=== PATIENT | female | born 1940 | race Caucasian/White ===

== ENCOUNTER 2016-11-03 07:14 | Outpatient (CLI) | payer MEDICARE, OTHER ==
[2016-11-03 07:30] LABS: BASOPHILS % 0.5 (0.0-1.5); EOSINOPHILS % 5.3 % (0.0-6.8); LYMPHOCYTES # 0.5 # k/uL (0.6-4.0); MEAN CORPUSCULAR HEMOGLOBIN 30.6 pg (28.0-34.0); MONOCYTES # 0.6 # k/uL (0.0-0.9); MONOCYTES % 6.8 % (0.0-11.0); NEUTROPHILS # 6.7 # k/uL (1.4-7.7)
[2016-11-03 08:23] LABS: eGFR (African) > 60; eGFR (Non-African) > 60
== END 2016-11-03 07:16 ==
LOC: LAB 07:14
PROVIDERS: ATTEND Family Medicine
DX: I10 Essential (primary) hypertension (principal); E78.00 Pure hypercholesterolemia, unspecified; E03.9 Hypothyroidism, unspecified
CPT/HCPCS: 36415; 80053; 80061; 84443; 85025

== ENCOUNTER 2016-11-28 13:53 | Outpatient (CLI) | payer MEDICARE, OTHER ==
--- NOTE | 2016-11-28 16:52 | Diagnostic Imaging Report ---
[facility] [address] [facility].[address] [address] Report Submission Date: Nov 28, 2016 3:37:26 PM CLEANERS Patient Study Name: VIVIAN LEO Date: Nov 28, 2016 2:13:28 PM CLEANERS Modality Type: CR Gender: F Description: LOWER EXTREMITY : 42 Institution: [facility] Physician: YOLA DAMION Bilateral ankles three views HISTORY: Left ankle swelling for 1 month FINDINGS: Three views of the left ankle reveal small dorsal and plantar heel spurs. The ankle is normal without fracture, dislocation, arthropathy, or focal bone lesion. Three views the right ankle reveal similar small dorsal and plantar heel spurs without ankle abnormality. IMPRESSION: Bilateral heel spurs. Electronically signed on Nov 28, 2016 3:37:26 PM CLEANERS by: Ed GARCIA
--- NOTE | 2016-11-28 16:53 | Diagnostic Imaging Report ---
[facility] [address] [facility].[address] [address] Report Submission Date: Nov 28, 2016 3:36:02 PM DIRECTOR OF PURCHASING Patient Study Name: VIVIAN LEO Date: Nov 28, 2016 2:07:52 PM DIRECTOR OF PURCHASING Modality Type: CR Gender: F Description: CHEST : 42 Institution: [facility] Physician: YOLA DAMION Chest two views HISTORY: Chronic cough and hypertension FINDINGS: The lungs are mildly hyperinflated without infiltrate or pleural effusion. Calcified granulomas are present. Heart size and pulmonary vascularity are normal. IMPRESSION: Hyperinflation. Electronically signed on Nov 28, 2016 3:36:02 PM DIRECTOR OF PURCHASING by: Ed GARCIA
== END 2016-11-28 13:55 ==
LOC: RAD 13:53
PROVIDERS: ATTEND Family Medicine
DX: R05 Cough (principal); I10 Essential (primary) hypertension; M77.32 Calcaneal spur, left foot; M77.31 Calcaneal spur, right foot
CPT/HCPCS: 71020

== ENCOUNTER 2016-12-26 10:03 | Outpatient (CLI) | payer MEDICARE, OTHER ==
[2016-12-26 10:54] LABS: eGFR (African) > 60; eGFR (Non-African) > 60
== END 2016-12-26 10:10 ==
LOC: LAB 10:03
PROVIDERS: ATTEND Clinical Nurse Specialist Medical-Surgical
DX: M81.0 Age-related osteoporosis without current pathological fracture (principal); E55.9 Vitamin D deficiency, unspecified; E83.52 Hypercalcemia
CPT/HCPCS: 36415; 80053; 82306

== ENCOUNTER 2017-01-22 09:33 | Emergency (ER) | payer MEDICARE, OTHER ==
[2017-01-22 09:44] VITALS: BP 146/58
--- NOTE | 2017-01-22 09:46 | ED Physician Documentation ---
Skin Rash - HISTORIAN Historian: patient - HPI Stated Complaint: ? Shingle Virus to Forehead Chief Complaint: Skin Rash Additional Information: started yesterday, vesicular rash on forhead, burning/painful. History of shingles in this area in past. Onset: hours Timing: still present Duration: worse Location: facial Quality: painful, burning Where: home Context: Medication Exposure: none Context: Food Exposure: none Further Comments: no - ROS CONST: none CVS/RESP: none EYES/ENT: none GI/: none MS/SKIN/LYMPH: none NEURO/PSYCH: none - PAST HX Past History: hypertension Surgeries/Procedures: No Immunizations: zostavax Allergies/Adverse Reactions: Allergies Allergy/AdvReac Type Severity Reaction Status Date / Time Sulfa (Sulfonamide Allergy Verified 01/22/17 09:44 Antibiotics) Home Medications: Ambulatory Orders Medication Instructions Recorded Denosumab [Prolia] 60 mg SQ 1T #1 sz 11/13/15 - SOCIAL HX Smoking History: non-smoker Alcohol Use: none Drug Use: none - FAMILY HX Family History: none - VITAL SIGNS Vital Signs: Vital Signs Temp Pulse Resp BP Pulse Ox 97.6 F 65 16 146/58 99 01/22/17 09:35 01/22/17 09:35 01/22/17 09:35 01/22/17 09:35 01/22/17 09:35 - REVIEWED ASSESSMENTS Nursing Assessment Reviewed: Yes Vitals Reviewed: Yes Skin Rash Physical Exam - EXAM General Appearance: no acute distress Skin: warm,dry (vesicular burning rash 2x3cm on Right forehead at hair line) Location: face, scalp Character: vesicular Symptoms: tenderness. No: warmth Extremities: non-tender EENT: eyes nml inspection Neck: trachea midline Respiratory: no resp distress CVS: reg. rate & rhythm Abdomen: non-tender Neuro/Psych: oriented x3 Discharge Clincal Impression: Zoster keratitis Home Medications: Ambulatory Orders Denosumab [Prolia] 60 mg SQ 1T #1 sz 11/13/15 Condition: Good Disposition: 01 HOME, SELF-CARE Decision to Admit: NO Date of Decison to Admit: 01/22/17 Decision Time: 09:50
== END 2017-01-22 09:58 | disposition home or self-care (01) ==
LOC: ED 09:33
DX: B02.33 Zoster keratitis (principal)
CPT/HCPCS: 99283

== ENCOUNTER 2017-06-23 11:03 | Outpatient (CLI) | payer MEDICARE, OTHER ==
--- NOTE | 2017-06-23 13:38 | Diagnostic Imaging Report ---
DAMION ACEVES [facility] [address] [facility] [address] Report Submission Date: Jun 23, 2017 12:16:34 PM CDT Patient Study Name: VIVIAN LEO Date: Jun 23, 2017 11:24:33 AM CDT Modality Type: CR Gender: F Description: SPINE : 42 Institution: [facility] Physician: DAMION ACEVES Examination: Plain film lumbar spine History: Back discomfort Findings: 3 views of the lumbar spine demonstrates generalized osteopenia. Disc space narrowing L4/L5 and L5/S1. Endplate degenerative changes most pronounced at L4/L5. No anterior compression. Mild listhesis at L3/L4 and L4/L5. Curvature to the left on the anterior posterior film. Minimal prevertebral vascular calcifications. Impression: Advanced lumbar degenerative changes. If patient is experiencing neurologic symptoms, consider obtaining MRI. Electronically signed on Jun 23, 2017 12:16:34 PM CDT by: Sedrick GARCIA
== END 2017-06-23 11:04 ==
LOC: RAD 11:03
PROVIDERS: ATTEND Family Medicine
DX: M54.9 Dorsalgia, unspecified (principal)
CPT/HCPCS: 72100

== ENCOUNTER 2017-06-27 10:03 | Outpatient (CLI) | payer MEDICARE, OTHER | END 2017-06-27 10:04 | LOC: LAB 10:03 | PROVIDERS: ATTEND Clinical Nurse Specialist Medical-Surgical | DX: M81.0 Age-related osteoporosis without current pathological fracture (principal); E55.9 Vitamin D deficiency, unspecified; E83.52 Hypercalcemia | CPT/HCPCS: 36415; 82306; 82310 ==

== ENCOUNTER 2017-11-16 08:19 | Outpatient (CLI) | payer MEDICARE, OTHER ==
[2017-11-16 09:18] LABS: eGFR (African) > 60; eGFR (Non-African) > 60
[2017-11-16 09:23] LABS: BASOPHILS % 0.4 (0.0-1.5); EOSINOPHILS % 2.1 % (0.0-6.8); MEAN CORPUSCULAR HEMOGLOBIN 30.7 pg (28.0-34.0); MEAN CORPUSCULAR VOLUME 90.8 fl (80.0-100.0); MONOCYTES % 5.9 % (0.0-11.0); NEUTROPHILS # 5.7 # k/uL (1.4-7.7)
== END 2017-11-16 08:20 ==
LOC: LAB 08:19
PROVIDERS: ATTEND Family Medicine
DX: E03.9 Hypothyroidism, unspecified (principal); E78.00 Pure hypercholesterolemia, unspecified; I10 Essential (primary) hypertension
CPT/HCPCS: 36415; 80053; 80061; 84443; 85025

== ENCOUNTER 2018-04-03 09:46 | Outpatient (CLI) | payer MEDICARE, OTHER | END 2018-04-03 09:47 | LOC: LAB 09:46 | PROVIDERS: ATTEND Clinical Nurse Specialist Medical-Surgical | DX: M81.0 Age-related osteoporosis without current pathological fracture (principal); E55.9 Vitamin D deficiency, unspecified; E83.52 Hypercalcemia | CPT/HCPCS: 36415; 82306; 82310 ==

== ENCOUNTER 2018-10-22 09:30 | Outpatient (CLI) | payer MEDICARE, OTHER | END 2018-10-22 09:33 | LOC: LAB 09:30 | PROVIDERS: ATTEND Clinical Nurse Specialist Medical-Surgical | DX: M81.0 Age-related osteoporosis without current pathological fracture (principal); E55.9 Vitamin D deficiency, unspecified; E83.52 Hypercalcemia | CPT/HCPCS: 36415; 82306; 82310 ==

== ENCOUNTER 2018-11-15 08:22 | Outpatient (CLI) | payer MEDICARE, OTHER ==
[2018-11-15 09:05] LABS: MEAN CORPUSCULAR HEMOGLOBIN 29.6 pg (28.0-34.0)
[2018-11-15 09:06] LABS: BASOPHILS % 0.4 (0.0-1.5); EOSINOPHILS % 4.8 % (0.0-6.8); MONOCYTES % 6.3 % (0.0-11.0); NEUTROPHILS # 5.5 # k/uL (1.4-7.7)
[2018-11-15 09:12] LABS: eGFR (Non-African) > 60
== END 2018-11-15 08:23 ==
LOC: LAB 08:22
PROVIDERS: ATTEND Family Medicine
DX: I10 Essential (primary) hypertension (principal); E03.9 Hypothyroidism, unspecified; E78.5 Hyperlipidemia, unspecified
CPT/HCPCS: 36415; 80053; 80061; 84443; 85025

== ENCOUNTER 2019-02-06 11:32 | Outpatient (CLI) | payer MEDICARE, OTHER ==
--- NOTE | 2019-02-06 22:16 | Diagnostic Imaging Report ---
DAMION ACEVES [facility] [address] [facility] [address] [address] Report Submission Date: Feb 06, 2019 3:44:40 PM CDT Patient Study Name: VIVIAN LEO Date: Feb 06, 2019 11:33:07 AM CDT Modality Type: DX Gender: F Description: : 42 Institution: [facility] Physician: DAMION ACEVES Right wrist History: Status post fall Three views of the right wrist were obtained which demonstrate normal mineralization. There is no evidence for acute fracture or dislocation. The carpal bones are intact. Mild osteoarthritic findings are present of the 1st IP joint, 1st MCP joint and 1st metacarpal carpal joint space. Impression: No evidence for acute fracture of the right wrist. 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 Electronically signed on Feb 06, 2019 3:44:40 PM CDT by: Olivia GARCIA
== END 2019-02-06 11:33 ==
LOC: RAD 11:32
PROVIDERS: ATTEND Family Medicine
DX: M18.11 Unilateral primary osteoarthritis of first carpometacarpal joint, right hand (principal); M19.041 Primary osteoarthritis, right hand; M25.531 Pain in right wrist
CPT/HCPCS: 73110

== ENCOUNTER 2019-04-22 10:12 | Outpatient (CLI) | payer MEDICARE, OTHER | END 2019-04-22 10:14 | LOC: LAB 10:12 | PROVIDERS: ATTEND Clinical Nurse Specialist Medical-Surgical | DX: E55.9 Vitamin D deficiency, unspecified (principal); M81.0 Age-related osteoporosis without current pathological fracture | CPT/HCPCS: 36415; 82306; 82310; 83970 ==

== ENCOUNTER 2019-10-18 10:29 | Outpatient (CLI) | payer MEDICARE, OTHER | END 2019-10-18 10:34 | LOC: LAB 10:29 | PROVIDERS: ATTEND Clinical Nurse Specialist Medical-Surgical | DX: M81.0 Age-related osteoporosis without current pathological fracture (principal); E55.9 Vitamin D deficiency, unspecified | CPT/HCPCS: 36415; 82306; 82310 ==